=== PATIENT | male | born 1955 | race Hispanic/Latino ===

== ENCOUNTER 2017-06-21 11:15 | Day surgery (SDC) | payer BC ==
[~2017-06-21 11:15] MED LIST: AK-Dilate ONE; AK-Dilate OU ONE; IOPIDINE ONE; IOPIDINE OU ONE; MYDRIACYL ONE; MYDRIACYL OU ONE
[2017-06-21 11:52] VITALS: BP 100/60
[2017-06-21] MEDS ORDERED: IOPIDINE OU ONE ×2 (11:56→12:52)
[2017-06-21] MEDS ORDERED: MYDRIACYL OU ONE (11:56)
[2017-06-21] MEDS ORDERED: AK-Dilate OU ONE (11:56)
== END 2017-06-21 12:57 | disposition home or self-care (01) ==
LOC: OR 11:15
PROVIDERS: ATTEND Ophthalmology
DX: H26.493 Other secondary cataract, bilateral (principal); G43.909 Migraine, unspecified, not intractable, without status migrainosus; I48.91 Unspecified atrial fibrillation; G47.30 Sleep apnea, unspecified; K21.9 Gastro-esophageal reflux disease without esophagitis; K75.4 Autoimmune hepatitis; F41.9 Anxiety disorder, unspecified; F32.9 Major depressive disorder, single episode, unspecified; Z21 Asymptomatic human immunodeficiency virus [HIV] infection status; Z88.0 Allergy status to penicillin; Z90.49 Acquired absence of other specified parts of digestive tract